=== PATIENT | female | born 1995 | race Caucasian/White ===

== ENCOUNTER 2018-07-27 17:00 | Emergency (ER) | payer MEDICAID ==
[~2018-07-27] VITALS: Ht 152.4 cm; Wt 73.4 kg
[2018-07-27 17:19] VITALS: Ht 152.4 cm; Wt 73.4 kg
--- NOTE | 2018-07-27 18:43 | ERD ---
ER Documentation Chief Complaint Chief Complaint PT REPORTS HX OF ANEMIA, NOT TAKING IRON X 2 MONTHS C/O DIZZINESS HPI History of Present Illness: 42-year-old female who denies past medical history coming in today with complaint of dizziness, weakness, shortness of breath with exertion. Patient denies chest pain, palpitations. Patient reports history of anemia in which she has been noncompliant and has not had iron for the past 2 months. Patient denies any sources of bleeding at this time. At home pharmacological/nonpharmacological treatment for symptoms: Denies Denies social concerns; Denies recent foreign travel ROS All systems reviewed and are negative except as per history of present illness. Medications Home Meds Active Scripts Docusate Sodium* (Colace*) 100 Mg Capsule, 100 MG PO QHS for constipation prevention, #30 CAP 1 Refill Prov:ELI THOMAS NP 07/27/18 Ferrous Sulfate* (Ferrous Sulfate*) 325 Mg Tabec, 325 MG PO TID for anemia for 30 Days, TAB 1 Refill Prov:ELI THOMAS NP 07/27/18 Allergies Allergies: Coded Allergies: No Known Allergy (Unverified , 07/27/18) PMhx/Soc History of Surgery: Yes ( X 2) Anesthesia Reaction: No Hx Neurological Disorder: No Hx Respiratory Disorders: No Hx Cardiac Disorders: No Hx Psychiatric Problems: No Hx Miscellaneous Medical Probl: Yes (Anemia) Hx Alcohol Use: Yes (Socially) Hx Substance Use: No Hx Tobacco Use: No Smoking Status: Never smoker Physical Exam Vitals Vital Signs Date Temp Pulse Resp B/P (MAP) Pulse Ox O2 O2 Flow FiO2 Time Delivery Rate 07/27/18 98.2 66 18 98/50 (66) 100 Room Air 20:54 07/27/18 99.6 80 16 108/54 100 17:19 (72) Physical Exam Const: No acute distress, afebrile Head: Atraumatic Eyes: Normal Conjunctiva ENT: Normal External Ears, Nose and Mouth. Neck: Full range of motion. No meningismus. Resp: Clear to auscultation bilaterally Cardio: Regular rate and rhythm, no murmurs Abd: Soft, non tender, non distended. No guarding, no masses, no rigidity Skin: No petechiae or rashes Back: No midline or flank tenderness Ext: No cyanosis, or edema Neur: Awake and alert x3, speaking in clear sentences, no focal deficits or facial asymmetry Psych: Normal Mood and Affect Result Diagram: 07/27/18 1844 07/27/18 1844 Results 24 hrs Laboratory Tests Test 07/27/18 18:44 07/27/18 20:32 White Blood Count 9.0 10^3/ul Red Blood Count 4.91 10^6/ul Hemoglobin 12.0 g/dl Hematocrit 39.1 % Mean Corpuscular Volume 79.6 fl Mean Corpuscular Hemoglobin 24.4 pg Mean Corpuscular Hemoglobin Concent 30.7 g/dl Red Cell Distribution Width 15.5 % Platelet Count 245 10^3/UL Mean Platelet Volume 9.9 fl Immature Granulocytes % 0.200 % Neutrophils % 76.1 % Lymphocytes % 16.7 % Monocytes % 5.1 % Eosinophils % 1.8 % Basophils % 0.1 % Nucleated Red Blood Cells % 0.0 /100WBC Immature Granulocytes # 0.020 10^3/ul Neutrophils # 6.8 10^3/ul Lymphocytes # 1.5 10^3/ul Monocytes # 0.5 10^3/ul Eosinophils # 0.2 10^3/ul Basophils # 0.0 10^3/ul Nucleated Red Blood Cells # 0.0 10^3/ul Sodium Level 142 mmol/L Potassium Level 3.9 mmol/L Chloride Level 105 mmol/L Carbon Dioxide Level 27 mmol/L Anion Gap 10 Blood Urea Nitrogen 9 mg/dl Creatinine 0.54 mg/dl Est Glomerular Filtrat Rate mL/min > 60 mL/min Glucose Level 94 mg/dl Calcium Level 9.8 mg/dl POC Beta HCG, Qualitative NEGATIVE Procedures/MDM ED course includes a thorough examination and history. Medications: Imaging: EKG Labs: CBC, BMP, urine Low suspicion for life-threatening medical emergency. Otherwise healthy patient presenting with constellation of symptoms likely representing dizziness, weakness, secondary to microcytic anemia as characterized by history, physical exam findings, lab findings. Urine negative. CBC: no e/o of systemic infection or severe anemia; hemoglobin hematocrit 12/39. BMP within normal limits. EKG at 2013: Rate/Rhythm: Normal Sinus Rhythm, ventricular rate 70 QRS, ST, T-waves: No changes consistent w/ acute ischemia Impression: No evidence of ischemia or arrhythmia Patient reassessment 2019: Patient hemodynamically stable. Results discussed. No respiratory distress, otherwise relatively well appearing and nontoxic. Disposition given. Patient educated on diagnoses, prescriptions, follow-up care, return precautions. Strict return precautions given for worsening condition; questions answered discharge. Patient verbalizes understanding of discharge instructions, plan of care, return precautions Disposition for discharge with followup in 2 days with PCP/clinic. Departure Diagnosis: Primary Impression: Dizziness Additional Impressions: Fatigue Fatigue type: unspecified Qualified Codes: R53.83 - Other fatigue Microcytic anemia Condition: Stable ELI THOMAS NP Jul 27, 2018 18:43
[2018-07-27] MEDS ORDERED: FER325 PO (20:10)
[2018-07-27] MEDS ORDERED: DOCU-144 PO (20:10)
[2018-07-27 20:54] VITALS: BP 98/50; PULSE 66; RESP 18
== END 2018-07-27 20:55 | disposition home or self-care (01) ==
LOC: FTE 17:00
DX: D50.9 Iron deficiency anemia, unspecified (principal)
CPT/HCPCS: 36415; 80048; 81025; 85025; 93005; Z7502